=== PATIENT | female | born 1995 | race Two or more races ===

== ENCOUNTER 2022-04-17 10:49 | Emergency (ER) | payer OTHER ==
[~2022-04-17] VITALS: Ht 154.9 cm; Wt 61.2 kg
[2022-04-17] MEDS ORDERED: PRENATABS RX T1 EACH PO (11:30)
[2022-04-17] MEDS ORDERED: FOLIC ACID1 MG PO (11:30)
== END 2022-04-17 15:26 | disposition home or self-care (01) ==
LOC: ER 10:49
DX: R10.9 Unspecified abdominal pain (principal); Z20.822 Contact with and (suspected) exposure to COVID-19

== ENCOUNTER 2022-09-10 08:15 | Inpatient (IN) | payer OTHER ==
[~2022-09-10] VITALS: Ht 154.9 cm; Wt 3.2 kg
[~2022-09-10 08:15] MED LIST: FOLIC ACID1 MG PO; PRENATABS RX T1 EACH PO
[2022-09-10] MEDS ORDERED: CALCIUM500 M1 PO (09:39)
[2022-09-13] MEDS ORDERED: IBUPROFEN800 MG PO (10:06)
== END 2022-09-13 11:23 | disposition home or self-care (01) | DRG 785 ==
LOC: EDSTATUS 08:15 → OB/GYN 09-11 08:15 → O/R 09-11 08:25 → OB/GYN 09-11 10:45
PROVIDERS: ADMIT Specialist; ATTEND Specialist
PROC: 0UB70ZZ Excision of Bilateral Fallopian Tubes, Open Approach (ICD-10-PCS; 2022-09-11)
PROC: 4A1HXCZ Monitoring of Products of Conception, Cardiac Rate, External Approach (ICD-10-PCS; 2022-09-11)
PROC: 10D00Z1 Extraction of Products of Conception, Low, Open Approach (ICD-10-PCS; principal; 2022-09-11 10:45)
DX: O34.211 Maternal care for low transverse scar from previous cesarean delivery (principal); Z3A.38 38 weeks gestation of pregnancy; Z37.0 Single live birth; Z20.822 Contact with and (suspected) exposure to COVID-19; Z30.2 Encounter for sterilization